=== PATIENT | male | born 1955 | race Caucasian/White ===

== ENCOUNTER 2017-06-21 10:25 | Day surgery (SDC) | payer MEDICAID ==
[2017-06-21 11:01] LABS: HEMATOCRIT 45.3 % (40.0-51.0)
[2017-06-21 11:13] LABS: INR 0.94 (0.83-1.16); PROTIME(PATIENT) 12.5 SEC (12.0-15.0)
[2017-06-21] MEDS ORDERED: NS 1,000 ML IV SCH (11:30)
[2017-06-21] MEDS ORDERED: FLUMAZENIL 0.5 MG/5 ML MDV IVP ONE (11:43)
[2017-06-21] MEDS ORDERED: NALOXONE HCL 0.4 MG/ML INJ ONE (11:43)
[2017-06-21] MEDS ORDERED: MIDAZOLAM 2 MG/2 ML VIAL ONE (11:43)
[2017-06-21] MEDS ORDERED: fentaNYL 100 MCG/2 ML INJ ONE (11:44)
[2017-06-21 14:28] VITALS: TEMP 97.9
== END 2017-06-21 14:23 | disposition home or self-care (01) ==
LOC: FIMAGING 10:25
PROVIDERS: ATTEND Internal Medicine Hematology & Oncology
PROC: 07BH3ZX Excision of Right Inguinal Lymphatic, Percutaneous Approach, Diagnostic (ICD-10-PCS; principal; 2017-06-21 13:20)
DX: C77.5 Secondary and unspecified malignant neoplasm of intrapelvic lymph nodes (principal); C61 Malignant neoplasm of prostate; R97.20 Elevated prostate specific antigen [PSA]; Z88.2 Allergy status to sulfonamides
CPT/HCPCS: J2250; J2310; J3010

== ENCOUNTER → 2017-12-01 | Outpatient (CLI) | payer MEDICAID | LOC: GIMAGING 12:43 | PROVIDERS: ATTEND Family Medicine | DX: R05 Cough (principal); R06.02 Shortness of breath; C61 Malignant neoplasm of prostate | CPT/HCPCS: 71046-PO ==